=== PATIENT | female | born 1970 | race Caucasian/White ===

== ENCOUNTER 2017-07-08 12:11 | Outpatient (CLI) | payer BC ==
--- NOTE | 2017-07-08 15:25 | ULT ---
FOCUSED ULTRASOUND OF THE LEFT BREAST: Date: 07/08/17 HISTORY: New palpable mass at the 2 o'clock position of the left breast. FINDINGS: Focused ultrasound in the area of palpable concern obtained. There are numerous simple cysts in this region, including a dominant cyst measuring up to 3.2 x 1.8 x 3.6 cm. Additional smaller satellite cysts are noted measuring in the 1.0-1.5 cm range. No solid mass or abnormal shadowing. IMPRESSION: BIRADS Category 2 - benign findings. Annual screening mammography advised. In the area of palpable c oncern, there are numerous cysts, including a dominant cyst measuring up to 3.6 cm. POS: AGNES
--- NOTE | 2017-07-08 16:36 | MMO ---
BILATERAL DIAGNOSTIC MAMMOGRAM: Date: 07/08/17 COMPARISON: 01/15/16, 01/10/16, 08/12/12. HISTORY: New palpable mass in the upper outer left breast. FINDINGS: This patient's mammogram was interpreted with the assistance of computer-aided detection. The breast parenchyma is extremely dense, limiting mammographic assessment. There is no dominant mass or architectural distortion. No concerning microcalcifications are seen. Focused ultrasound in the area of palpable concern on the left demonstrates multiple simple cysts, i ncluding a dominant cyst measuring up to 3.6 cm. IMPRESSION: BIRADS 2: Benign Finding(s) Annual screening mammography recommended. POS: AGNES
== END 2017-07-08 12:12 | disposition home or self-care (01) ==
LOC: MAMMO 12:11
PROVIDERS: ATTEND Family Medicine
DX: N63.21 Unspecified lump in the left breast, upper outer quadrant (principal); N60.12 Diffuse cystic mastopathy of left breast
CPT/HCPCS: 77066; G0204

== ENCOUNTER 2018-02-18 08:36 | Outpatient (CLI) | payer BC | END 2018-02-18 08:37 | disposition home or self-care (01) | LOC: BICMAMMO 08:36 | PROVIDERS: ATTEND Family Medicine | DX: N63.41 Unspecified lump in right breast, subareolar (principal); N60.01 Solitary cyst of right breast; Z80.3 Family history of malignant neoplasm of breast | CPT/HCPCS: G0279 ==

== ENCOUNTER 2019-02-10 09:35 | Outpatient (CLI) | payer BC ==
--- NOTE | 2019-02-10 10:17 | MMO ---
Bilateral MAMMO Bilat Diag [facility]. CLINICAL HISTORY: Patient is 48 years old and is seen for diagnostic exam. The patient has the following family history of breast cancer: maternal grandmother. The patient has no personal history of cancer. VIEWS: The views performed were: bilateral craniocaudal with tomosynthesis; bilateral mediolateral oblique with tomosynthesis; bilateral mediolateral with tomosynthesis; and bilateral exaggerated craniocaudal. FILMS COMPARED: The present examination has been compared to prior imaging studies performed at [facility] on 02/18/2018, and at [facility] on 01/10/2016, 01/15/2016 and 07/08/2017. MAMMOGRAM FINDINGS: The breasts are extremely dense, which may lower the sensitivity of mammography. There are multiple round masses of varying size with circumscribed margins seen in both breasts. There are no suspicious masses, suspicious calcifications, or new areas of architectural distortion. IMPRESSION: THERE IS NO MAMMOGRAPHIC EVIDENCE OF MALIGNANCY. A ROUTINE FOLLOW-UP MAMMOGRAM IN 1 YEAR IS RECOMMENDED. THE RESULTS OF THIS EXAM WERE SENT TO THE PATIENT. ACR BI-RADS Category 2 - Benign finding MAMMOGRAPHY NOTE: 1. A negative mammogram report should not delay a biopsy if a dominant of clinically suspicious mass is present. 2. Approximately 10% to 15% of breast cancers are not detected by mammography. 3. Adenosis and dense breasts may obscure an underlying neoplasm.
== END 2019-02-10 09:36 | disposition home or self-care (01) ==
LOC: BICMAMMO 09:35
PROVIDERS: ATTEND Family Medicine
DX: R92.2 Inconclusive mammogram (principal); Z80.3 Family history of malignant neoplasm of breast
CPT/HCPCS: 77066; G0279

== ENCOUNTER 2020-03-28 09:38 | Outpatient (CLI) | payer BC ==
--- NOTE | 2020-03-28 10:44 | MMO ---
Bilateral MAMMO Bilat Diag [facility]. CLINICAL HISTORY: Patient is 49 years old and is seen for diagnostic exam. The patient has the following family history of breast cancer: maternal grandmother. The patient has no personal history of cancer. VIEWS: The views performed were: bilateral craniocaudal with tomosynthesis; bilateral mediolateral oblique with tomosynthesis; and bilateral mediolateral with tomosynthesis. FILMS COMPARED: The present examination has been compared to prior imaging studies performed at [facility] on 02/18/2018 and 02/10/2019, and at [facility] on 01/15/2016 and 07/08/2017. This study has been interpreted with the assistance of computer-aided detection. MAMMOGRAM FINDINGS: The breasts are extremely dense, which may lower the sensitivity of mammography. Finding 1: There are multiple masses of varying size with circumscribed margins seen in both breasts. Finding 2: There are stable benign appearing calcifications seen in both breasts. There are no suspicious masses, suspicious calcifications, or new areas of architectural distortion. IMPRESSION: FINDING 1: MASSES IN BOTH BREASTS ARE BENIGN. SOME ARE LARGER AND SOME ARE SMALLER. FINDING 2: STABLE CALCIFICATIONS IN BOTH BREASTS ARE BENIGN. A ROUTINE FOLLOW-UP MAMMOGRAM IN 1 YEAR IS RECOMMENDED. THE RESULTS OF THIS EXAM WERE SENT TO THE PATIENT. ACR BI-RADS Category 2 - Benign finding MAMMOGRAPHY NOTE: 1. A negative mammogram report should not delay a biopsy if a dominant of clinically suspicious mass is present. 2. Approximately 10% to 15% of breast cancers are not detected by mammography. 3. Adenosis and dense breasts may obscure an underlying neoplasm. Reported by: NIDHI CHERRY MD Electonically Signed: [id number]
== END 2020-03-28 09:39 | disposition home or self-care (01) ==
LOC: BICMAMMO 09:38
PROVIDERS: ATTEND Family Medicine
DX: R92.2 Inconclusive mammogram (principal)
CPT/HCPCS: 77066; G0279

== ENCOUNTER 2021-08-06 08:59 | Outpatient (CLI) | payer BC | END 2021-08-06 09:00 | disposition home or self-care (01) | LOC: BICMAMMO 08:59 | PROVIDERS: ATTEND Family Medicine | DX: Z12.31 Encounter for screening mammogram for malignant neoplasm of breast (principal); Z80.3 Family history of malignant neoplasm of breast | CPT/HCPCS: 77063; 77067 ==

== ENCOUNTER 2021-08-08 09:57 | Outpatient (CLI) | payer BC | END 2021-08-08 09:58 | disposition home or self-care (01) | LOC: BICMAMMO 09:57 | PROVIDERS: ATTEND Family Medicine | DX: R92.1 Mammographic calcification found on diagnostic imaging of breast (principal) | CPT/HCPCS: G0279 ==

== ENCOUNTER → 2021-08-16 | Day surgery (SDC) | payer BC | LOC: MAMMO 07:04 | PROVIDERS: ATTEND Surgery | PROC: 0H9T3ZX Drainage of Right Breast, Percutaneous Approach, Diagnostic (ICD-10-PCS; principal; 2021-08-16) | DX: N60.11 Diffuse cystic mastopathy of right breast (principal); N60.21 Fibroadenosis of right breast | CPT/HCPCS: 19081; 76098; 88305 ==